=== PATIENT | male | born 1945 | race Caucasian/White ===

== ENCOUNTER 2018-01-21 15:12 | Emergency (ER) | payer MEDICARE, OTHER ==
[~2018-01-21] VITALS: Ht 180.3 cm; Wt 79.5 kg
[~2018-01-21 15:12] MED LIST: METHO500 PO; OXYC60TA8 PO; PERC5TAB12 PO; PRED20 PO
[2018-01-21 15:17] VITALS: BP 188/84; PULSE 81; RESP 16; TEMP 97.4; O2SAT 97
[2018-01-21] MEDS ORDERED: HYDR-3678 PO (15:31)
[2018-01-21] MEDS ORDERED: OXYC60TA8 PO (15:31)
[2018-01-21 15:32] VITALS: BP 178/80; PULSE 77; RESP 20; O2SAT 96
[2018-01-21] MEDS ORDERED: METO50TA PO (15:36)
[2018-01-21] MEDS ORDERED: SODIUM CHLORIDE 0.9% FLUSH 10 ML FLUSH IVF PRN (16:00)
--- NOTE | 2018-01-21 16:02 | PD ---
HPI Chief Complaint: Respiratory Symptoms Time Seen by Provider: 15:24 Travel History International Travel<30 days: No Contact w/Intl Traveler<30days: No Traveled to known affect area: No History of Present Illness HPI Patient is a 72-year-old male presents emergency department for evaluation of cough and congestion the past few days becoming with some mild blood mixed in the sputum. He has not coughed up any blood clots, no blood in the stool. He states the worst is that it feels like it is dripping down the back of his throat, non-smoker. Denies any weight loss. No history of correction time or tuberculosis exposure. He denies any fevers or night sweats. States symptoms are mild, been gradually worsening over the past 4 days, associated signs and symptoms and context as above PFSH Past Medical History Arthritis: Yes Depression: Yes (PTSD) Cardiovascular Problems: Yes High Cholesterol: Yes Diminished Hearing: Yes Hypertension: Yes Immunizations Current: Yes Myocardial Infarction: Yes Tetanus Vaccination: < 5 Years Influenza Vaccination: Yes Past Surgical History Tonsillectomy: Yes Social History Alcohol Use: Yes (occ) Tobacco Use: No Substance Use: No Allergies-Medications (Allergen,Severity, Reaction): Coded Allergies: celecoxib (Unverified Allergy, Intermediate, Cramping, 01/21/18) aspirin (Unverified Allergy, Mild, Cramping, 01/21/18) morphine (Verified Allergy, Unknown, cant urinate, 01/21/18) meloxicam (Verified Adverse Reaction, Unknown, abd pain, 01/21/18) Reported Meds & Prescriptions Reported Meds & Active Scripts Active Mucinex DM (Dextromethorphan-Guaifenesin) 30-600 Mg Tab 1 Tab PO BID PRN 10 Days Prednisone 20 Mg Tab 60 Mg PO DAILY 5 Days Azithromycin 250 Mg Tab 250 Mg PO DIRECTED Take 2 tabs (500 mg) on day 1 then 1 tab daily x 4 days. Reported Metoprolol Tartrate 50 Mg Tab 50 Mg PO BID Oxycontin (Oxycodone HCl) 60 Mg Tab 80 Mg PO TID Hysingla ER (Hydrocodone ER) 60 Mg Michael 1 Tab PO Q4-6H Review of Systems Except as stated in HPI: all other systems reviewed are Neg Physical Exam Narrative GENERAL: Well-developed well-nourished, no obvious distress SKIN: Focused skin assessment warm/dry. HEAD: Atraumatic. Normocephalic. EYES: Pupils equal and round. No scleral icterus. No injection or drainage. ENT: No nasal bleeding or discharge. Mucous membranes pink and moist. TMs clear bilaterally, oropharynx clear and moist. Patient does exhibit a cough and demonstrates to me clear mucus with some mild blood streaking. NECK: Trachea midline. No JVD. CARDIOVASCULAR: Regular rate and rhythm. No murmur appreciated. RESPIRATORY: No accessory muscle use. Clear to auscultation. Breath sounds equal bilaterally. GASTROINTESTINAL: Abdomen soft, non-tender, nondistended. Hepatic and splenic margins not palpable. MUSCULOSKELETAL: No obvious deformities. No clubbing. No cyanosis. No edema. NEUROLOGICAL: Awake and alert. No obvious cranial nerve deficits. Motor grossly within normal limits. Normal speech. PSYCHIATRIC: Appropriate mood and affect; insight and judgment normal. Data Data Last Documented VS Vital Signs Date Time Temp Pulse Resp B/P (MAP) Pulse Ox O2 Delivery O2 Flow Rate FiO2 01/21/18 17:39 96 Room Air 01/21/18 15:32 77 20 01/21/18 15:17 97.4 Orders Orders Chest, Pa & Lat (01/21/18 ) Electrocardiogram (01/21/18 15:58) Complete Blood Count With Diff (01/21/18 15:58) Comprehensive Metabolic Panel (01/21/18 15:58) Magnesium (Mg) (01/21/18 15:58) Prothrombin Time / Inr (Pt) (01/21/18 15:58) Act Partial Throm Time (Ptt) (01/21/18 15:58) Ecg Monitoring (01/21/18 15:58) Iv Access Insert/Monitor (01/21/18 15:58) Oximetry (01/21/18 15:58) Oxygen Administration (01/21/18 15:58) Sodium Chloride 0.9% Flush (Ns Flush) (01/21/18 16:00) Ed Discharge Order (01/21/18 17:20) Labs Laboratory Tests Test 01/21/18 16:00 White Blood Count 6.9 TH/MM3 Red Blood Count 4.82 MIL/MM3 Hemoglobin 14.2 GM/DL Hematocrit 42.1 % Mean Corpuscular Volume 87.2 FL Mean Corpuscular Hemoglobin 29.4 PG Mean Corpuscular Hemoglobin Concent 33.7 % Red Cell Distribution Width 12.7 % Platelet Count 210 TH/MM3 Mean Platelet Volume 7.7 FL Neutrophils (%) (Auto) 80.3 % Lymphocytes (%) (Auto) 11.2 % Monocytes (%) (Auto) 6.1 % Eosinophils (%) (Auto) 1.3 % Basophils (%) (Auto) 1.1 % Neutrophils # (Auto) 5.4 TH/MM3 Lymphocytes # (Auto) 0.8 TH/MM3 Monocytes # (Auto) 0.4 TH/MM3 Eosinophils # (Auto) 0.1 TH/MM3 Basophils # (Auto) 0.1 TH/MM3 CBC Comment DIFF FINAL Differential Comment Prothrombin Time 10.9 SEC Prothromb Time International Ratio 1.1 RATIO Activated Partial Thromboplast Time 27.5 SEC Blood Urea Nitrogen 13 MG/DL Creatinine 0.74 MG/DL Random Glucose 135 MG/DL Total Protein 7.4 GM/DL Albumin 3.8 GM/DL Calcium Level 9.1 MG/DL Magnesium Level 2.2 MG/DL Alkaline Phosphatase 74 U/L Aspartate Amino Transf (AST/SGOT) 18 U/L Alanine Aminotransferase (ALT/SGPT) 24 U/L Total Bilirubin 0.9 MG/DL Sodium Level 134 MEQ/L Potassium Level 4.1 MEQ/L Chloride Level 99 MEQ/L Carbon Dioxide Level 28.3 MEQ/L Anion Gap 7 MEQ/L Estimat Glomerular Filtration Rate 103 ML/MIN MDM Medical Decision Making Medical Screen Exam Complete: Yes Emergency Medical Condition: Yes Interpretation(s) EKG shows normal sinus rhythm normal axis and normal R-wave progression. No evidence of right heart strain, intervals within normal limits and no concerning ST segment changes. This is a normal EKG. Differential Diagnosis Bronchitis, pneumonia, PE highly unlikely, hemoptysis, coagulopathy unlikely per Narrative Course Patient was room to the emergency department, platelet count normal, INR and PTT are normal. Chest x-ray normal. The patient appears well saturating well. Symptoms are likely secondary to a viral infection and some mucous membrane irritation consider bronchitis. Will place on azithromycin and steroids. Discussed returning to criteria follow-up with his primary care physician. Patient is satisfied. No indication further workup at this time. Diagnosis Primary Impression: Hemoptysis Additional Impression: Bronchitis Med/Other Pt SpecificInfo: Prescription(s) given Scripts Dextromethorphan-Guaifenesin (Mucinex DM) 30-600 Mg Tab 1 TAB PO BID Y for CHEST CONGESTION AND/OR COUGH for 10 Days, #20 TAB 0 Refills Prov: Sabino Larry MD 01/21/18 Prednisone (Prednisone) 20 Mg Tab 60 MG PO DAILY for 5 Days, #15 TAB 0 Refills Prov: Sabino Larry MD 01/21/18 Azithromycin (Azithromycin) 250 Mg Tab 250 MG PO DIRECTED for Infection, #6 TAB 0 Refills Take 2 tabs (500 mg) on day 1 then 1 tab daily x 4 days. Prov: Sabino Larry MD 01/21/18 Disposition: 01 DISCHARGE HOME Condition: Stable Sabino Larry MD Jan 21, 2018 16:02
[2018-01-21 16:16] LABS: AUTOMATED NEUTROPHIL # 5.4 TH/MM3 (1.8-7.7); BASOPHIL # 0.1 TH/MM3 (0-0.2); BASOPHIL % 1.1 % (0.0-2.0); EOSINOPHIL # 0.1 TH/MM3 (0-0.4); EOSINOPHIL % 1.3 % (0.0-4.0); HEMATOCRIT 42.1 % (39.0-51.0); HEMOGLOBIN 14.2 GM/DL (13.0-17.0); LYMPH % 11.2 % (9.0-44.0); LYMPHOCYTE # 0.8 TH/MM3 (1.0-4.8); MEAN CELL VOLUME 87.2 FL (80.0-100.0); MEAN CORPUSCULAR HEMOGLOBIN 29.4 PG (27.0-34.0); MEAN CORPUSCULAR HGB CONC 33.7 % (32.0-36.0); MEAN PLATELET VOLUME 7.7 FL (7.0-11.0); MONO % 6.1 % (0.0-8.0); MONOCYTE # 0.4 TH/MM3 (0-0.9); NEUT % 80.3 % (16.0-70.0); PLATELET COUNT 210 TH/MM3 (150-450); RED BLOOD COUNT 4.82 MIL/MM3 (4.50-5.90); RED CELL DISTRIBUTION WIDTH 12.7 % (11.6-17.2); WHITE BLOOD COUNT 6.9 TH/MM3 (4.0-11.0)
--- NOTE | 2018-01-21 16:16 | RADRPT ---
EXAM DATE/TIME: 01/21/2018 15:58 [facility] COMPARISON: RIBS RIGHT(W PA CXR MIN 3VWS), January 16, 2015, 8:08. INDICATIONS : Cough. MEDICAL HISTORY : Hypercholesterolemia. Hypertension Myocardial infarction. Arthritis, PTSD SURGICAL HISTORY : Left total shoulder replacement ENCOUNTER: Initial ACUITY: 3 days PAIN SCORE: 3/10 LOCATION: Bilateral chest FINDINGS: PA and lateral views of the chest demonstrate the lungs to be symmetrically aerated without evidence of mass, infiltrate or effusion. The cardiomediastinal contours are unremarkable. Left shoulder arth roplasty in place. Osseous structures are otherwise intact. CONCLUSION: 1. No acute cardiopulmonary disease. Andrea Benavidez MD on January 21, 2018 at 16:14 Board Certified Radiologist. This report was verified electronically.
[2018-01-21 16:23] LABS: CHLORIDE 99 MEQ/L (98-107); SODIUM (NA) 134 MEQ/L (136-145)
[2018-01-21 16:26] LABS: CALCIUM 9.1 MG/DL (8.5-10.1)
[2018-01-21 16:27] LABS: ALBUMIN 3.8 GM/DL (3.4-5.0); BICARBONATE 28.3 MEQ/L (21.0-32.0); BLOOD UREA NITROGEN 13 MG/DL (7-18); GLUCOSE,RANDOM 135 MG/DL (74-106); MAGNESIUM 2.2 MG/DL (1.5-2.5)
[2018-01-21 16:28] LABS: INTERNATIONAL NORMALIZED RATIO 1.1 RATIO; PROTHROMBIN TIME - PATIENT 10.9 SEC (9.8-11.6)
[2018-01-21 16:30] LABS: ALT (GPT) 24 U/L (12-78); AST (GOT) 18 U/L (15-37); CREATININE 0.74 MG/DL (0.60-1.30); GLOMERULAR FILTRATION RATE 103 ML/MIN (>89)
[2018-01-21 16:31] LABS: TOTAL BILIRUBIN ADULT 0.9 MG/DL (0.2-1.0); TOTAL PROTEIN 7.4 GM/DL (6.4-8.2)
[2018-01-21 16:33] LABS: ALKALINE PHOSPHATASE 74 U/L (45-117)
[2018-01-21] MEDS ORDERED: PRED20 PO (17:13)
[2018-01-21] MEDS ORDERED: HUMIBIDDM PO (17:13)
[2018-01-21] MEDS ORDERED: AZIT250T3 PO (17:13)
[2018-01-21 17:39] VITALS: O2SAT 96
--- NOTE | 2018-01-22 09:41 | EKG ---
Date Performed: 01/21/2018 Time Performed: 16:10:28 PTAGE: 72 years EKG: Sinus rhythm NORMAL ECG NO PREVIOUS TRACING DOCTOR: Marc Arias Interpretating Date/Time 01/22/2018 09:39:58
== END 2018-01-21 17:40 | disposition home or self-care (01) ==
LOC: PHED 15:12
DX: R04.2 Hemoptysis (principal); J40 Bronchitis, not specified as acute or chronic; I10 Essential (primary) hypertension; Z79.899 Other long term (current) drug therapy
CPT/HCPCS: 71046; 80053; 83735; 85025; 85610; 85730; 93005; 99285